=== PATIENT | male | born 1950 | race Caucasian/White ===

== ENCOUNTER 2024-04-16 07:45 | Day surgery (SDC) | payer OTHER ==
[2024-04-12 15:34] VITALS: BMI 30.4
[2024-04-16] MEDS ORDERED: LIDOCAINE HCL/PF 2% SDV 5ML VIAL ONE (08:15)
[2024-04-16] MEDS ORDERED: PROPOFOL 160 ML ONE (08:16)
[2024-04-16 08:48] VITALS: PULSE 72; RESP 16; TEMP 97.1
[2024-04-16 09:16] VITALS: BP 120/73
== END 2024-04-16 09:27 | disposition home or self-care (01) ==
LOC: FASU-ENDO 07:45
PROVIDERS: ATTEND Internal Medicine Gastroenterology
PROC: 0DBN8ZX Excision of Sigmoid Colon, Via Natural or Artificial Opening Endoscopic, Diagnostic (ICD-10-PCS; principal; 2024-04-16 08:28)
DX: Z12.11 Encounter for screening for malignant neoplasm of colon (principal); K63.5 Polyp of colon; K57.30 Diverticulosis of large intestine without perforation or abscess without bleeding; Z86.0100 Personal history of colon polyps, unspecified
CPT/HCPCS: 88305-TC